=== PATIENT | female | born 1955 | race Caucasian/White ===

== ENCOUNTER → 2017-05-09 | Outpatient (CLI) | payer BC ==
[2017-05-09 13:39] LABS: BASO % 0.4 %; BASO ABS # 0.02 K/uL (0-0.2); COMPLETE YES; EOS % 1.6 %; HEMATOCRIT 37.3 % (37-47); LYMPH % 33.2 %; LYMPH ABS # 1.71 K/uL (1.2-3.4); MEAN CELL VOLUME 93.3 fL (80-100); MEAN CORPUSCULAR HEMOGLOBIN 31.5 pg (25-34); MEAN CORPUSCULAR HGB CONC 33.8 g/dl (32-36); MEAN PLATELET VOLUME 10.8 fL (7.4-10.4); MONO % 8.7 %; NEUT % 56.1 %; PLATELET COUNT 309 K/uL (130-400); WHITE BLOOD COUNT 5.15 K/uL (4.8-10.8)
[2017-05-09 13:58] LABS: BLOOD UREA NITROGEN 15 mg/dl (7-18); CALCIUM 9.2 mg/dl (8.5-10.1); CARBON DIOXIDE 28 mmol/L (21-32); CHLORIDE 107 mmol/L (98-107); CHOLESTEROL 231 mg/dl (0-200); CREATININE 0.85 mg/dl (0.60-1.20); GLUCOSE 100 mg/dl (70-99); POTASSIUM 3.7 mmol/L (3.5-5.1); SODIUM 141 mmol/L (136-145)
[2017-05-09 14:02] LABS: CHOLESTEROL/HDL RATIO 5.3; HDL CHOLESTEROL 44 mg/dl; LDL CHOLESTEROL CALCULATED 168 mg/dl; TRIGLYCERIDES 94 mg/dl (0-150); VERY LOW DENSITY LIPOPROT CALC 19 mg/dl
== END | disposition home or self-care (01) ==
LOC: C.LABMFLN 08:32
PROVIDERS: ATTEND Family Medicine
DX: E78.00 Pure hypercholesterolemia, unspecified (principal); K21.9 Gastro-esophageal reflux disease without esophagitis; D64.9 Anemia, unspecified

== ENCOUNTER → 2017-06-20 | Outpatient (CLI) | payer BC ==
--- NOTE | 2017-06-20 14:34 | MAMMOGRAPHY REPORT ---
BILATERAL DIGITAL SCREENING MAMMOGRAM TOMOSYNTHESIS WITH CAD: 06/20/2017 CLINICAL HISTORY: Routine screening. Patient has no complaints. TECHNIQUE: Breast tomosynthesis in addition to standard 2D mammography was performed. Current study was also evaluated with a Computer Aided Detection (CAD) system. COMPARISON: Comparison is made to exam dated: 05/14/2016 mammogram - [facility]. BREAST COMPOSITION: There are scattered areas of fibroglandular density in both breasts. FINDINGS: There is an oval 7 mm mass within the left upper outer quadrant, for which ultrasound and possible additional spot compression views are recommended for further evaluation. This may represen t a cyst. Additionally, there is a possible round partially circumscribed and partially obscured 7 m m mass within the right upper outer quadrant middle depth, best seen on the tomosynthesis images, for which ultrasound and possible additional spot compression views are recommended for further evaluati on. The remainder of both breasts are stable compared to prior exams, without suspicious masses, calcific ations, or areas of architectural distortion noted. IMPRESSION: ACR BI-RADS CATEGORY 0: INCOMPLETE EVALUATION: NEED ADDITIONAL IMAGING EVALUATION Bilateral breast masses, for which additional imaging evaluation is recommended. The patient will be called to schedule an appointment. Approximately 10% of breast cancers are not detected with mammography. A negative mammographic report should not delay biopsy if a clinically suggestive mass is present. Neetu Walton M.D. ah/:06/20/2017 12:49:39 Research Program Internship: Juliette HORNE(R)(M), [facility] letter sent: Addl Imaging 0 BI-RADS Code: ACR BI-RADS Category 0: Incomplete Evaluation: Need Additional Imaging Evaluation
== END | disposition home or self-care (01) ==
LOC: C.MAMM 08:58
PROVIDERS: ATTEND Family Medicine
DX: Z12.31 Encounter for screening mammogram for malignant neoplasm of breast (principal); N63.10 Unspecified lump in the right breast, unspecified quadrant; N63.20 Unspecified lump in the left breast, unspecified quadrant

== ENCOUNTER → 2017-06-25 | Outpatient (CLI) | payer BC ==
--- NOTE | 2017-06-25 15:15 | MAMMOGRAPHY REPORT ---
ULTRASOUND OF BOTH BREASTS: 06/25/2017 CLINICAL HISTORY: 62-year-old woman called back from screening mammography for 7 mm asymmetries in ea ch breast. COMPARISON: Comparison is made to exams dated: 06/20/2017 mammogram and 05/14/2016 mammogram - [facility]. FINDINGS: Targeted ultrasound was performed in the upper outer quadrant of each breast. In the 1:00 left breast, 2 cm from the nipple, there is an oval parallel circumscribed anechoic cyst measuring 4 .8 x 5.0 x 2.5 mm. There is an adjacent round circumscribed nodular hypoechoic mass that is not defi nitely contiguous with the cyst, measuring 2.6 x 2.4 mm. This could represent a complicated cyst or benign solid mass such as a fibroadenoma. Given that it does not meet the criteria for a simple cyst , a short interval follow-up is recommended in 6 months. In the 8:00 periareolar right breast, there is a lobulated hypoechoic cystic appearing mass measuring 5.6 x 6.3 x 2.9 mm. This likely corresponds to the mammographic focal asymmetry and most likely rep resents a complicated cyst. However given that it does not meet the criteria for a simple cyst, a sh ort interval follow-up is recommended in 6 months. IMPRESSION: ACR-BI-RADS CATEGORY 3: PROBABLY BENIGN - FOLLOW-UP RECOMMENDED 1. There is a benign anechoic simple cyst in the 1:00 left breast thought to correspond to the mammo graphic asymmetry. However, adjacent to the cyst is a small 2 mm round hypoechoic mass which could r epresent a complicated cyst or fibroadenoma. A short interval follow-up left diagnostic tomosynthesi s mammogram and repeat targeted ultrasound is recommended to ensure stability in 6 months. 2. There is a hypoechoic cystic appearing 6.3 mm mass in the 8:00 periareolar right breast, thought to correlate with the mammographic focal asymmetry. Although this could represent a complicated cyst , a short interval follow-up diagnostic tomosynthesis mammogram and repeat targeted ultrasound is rec ommended to enter stability in 6 months sparing These results and recommendations were discussed with the patient at the time of the exam. She tenta tively scheduled the follow-up appointment prior to leaving our department. Ely Puri M.D. ay/:06/25/2017 10:11:17 Taxicab Driver: Dr. Ely Puri, [facility] letter sent: Follow Up Recommended 3 BI-RADS Code: ACR-BI-RADS Category 3: Probably Benign
== END | disposition home or self-care (01) ==
LOC: C.MAMM 09:06
PROVIDERS: ATTEND Family Medicine
DX: N60.02 Solitary cyst of left breast (principal); N63.20 Unspecified lump in the left breast, unspecified quadrant; N63.10 Unspecified lump in the right breast, unspecified quadrant

== ENCOUNTER → 2017-12-24 | Outpatient (CLI) | payer BC ==
--- NOTE | 2017-12-25 15:31 | MAMMOGRAPHY REPORT ---
BILATERAL DIGITAL DIAGNOSTIC MAMMOGRAM TOMOSYNTHESIS WITH CAD AND TARGETED BILATERAL ULTRASOUND: 12/24 CLINICAL HISTORY: 62-year-old woman presents for follow-up in both breasts for masses identified in e ach upper outer quadrant, thought to correspond with complicated cysts on ultrasound. TECHNIQUE: Bilateral breast tomosynthesis in addition to standard 2D mammography was performed. Curre nt study was also evaluated with a Computer Aided Detection (CAD) system. COMPARISON: Comparison is made to exams dated: 06/25/2017 ultrasound, 06/20/2017 mammogram, and 05/14 mammogram - [facility]. BREAST COMPOSITION: There are scattered areas of fibroglandular density in both breasts. FINDINGS: There is a persistent lobulated and circumscribed, 6.1 x 4.1 x 4.9 mm mass in the upper out er middle one third of the left breast, that has not significantly changed in size or appearance comp aring to the prior mammograms. There are stable intramammary lymph nodes in the left upper outer rita drant posteriorly. No new suspicious masses, asymmetries, calcifications or areas of architectural d istortion are identified in the left breast. In the right upper outer middle one third of the breast, there is a low density partially circumscrib ed and obscured 5 mm mass that also appears similar to the prior tomosynthesis images. No significan t increase in size, associated micro calcification or architectural distortion. No other new suspici ous masses, calcifications, areas of architectural distortion or asymmetries are seen in the right br east. Repeat targeted ultrasound was performed in the left upper outer quadrant and right upper outer quadr ant. In the left 1:00 breast, 2 cm from the nipple, there are 2 adjacent nearly anechoic cysts. The larger component measures 5 mm and the smaller measures 2 mm. The smaller component now appears mor e anechoic and clearly cystic when compared to the prior ultrasound, confirming benignity. This jesus esponds with the mammographic mass and is benign. No further close follow-up is needed at this time. In the right 9:00 periareolar breast (previously labeled 8:00 periareolar right breast), there is a h ypoechoic to anechoic parallel oriented gently lobulated mass that measures approximately 4.6 x 2.6 x 5.7 mm. This does not fit the criteria for a simple cyst and could represent a complicated cyst or benign solid mass such as a fibroadenoma. When comparing to the prior ultrasound it may be slightly decreased in size, at which time it measured 6.3 x 2.9 x 5.6 mm, although this could simply be due to technique. Therefore, another six-month follow-up targeted right breast ultrasound is recommended. There is a newly visualized incidentally identified anechoic benign simple cyst in the 9:00 right br east, 3 cm from the nipple, measuring 3.2 x 2.3 x 2.9 mm. IMPRESSION: ACR-BI-RADS CATEGORY 3: PROBABLY BENIGN, TARGETED ULTRASOUND ACR-BI-RADS CATEGORY 3: PRO BABLY BENIGN 1. 2 adjacent benign cysts are identified in the 1:00 left breast, thought to correspond to the stab le circumscribed mammographic mass. The smaller component/cyst is now clearly more anechoic and cyst ic comparing to the prior ultrasound, confirming benignity. No further close follow-up is needed in the left breast at this time. 2. There is a stable low density partially circumscribed and obscured 5 mm mass in the right upper o uter quadrant, thought to correspond to a benign-appearing cyst cluster versus benign solid mass such as a fibroadenoma in the 9:00 periareolar right breast. This appears stable to slightly decreased i n size on ultrasound but is stable mammographically and another six-month follow-up right diagnostic tomosynthesis mammogram and repeat targeted ultrasound is recommended to ensure longer stability. 3. No other new suspicious findings identified in either breast. At the time of next six-month foll ow-up in the right breast, annual left screening mammography will also be due. These results and recommendations were discussed with the patient at the time of the exam. Approximately 10% of breast cancers are not detected with mammography. A negative mammographic report should not delay biopsy if a clinically suggestive mass is present. Ely Puri M.D. ay/:12/24/2017 14:37:26 Capping Machine Operator: Desiree HORNE([place])(M), [facility] letter sent: Follow Up Recommended 3 BI-RADS Code: ACR-BI-RADS Category 3: Probably Benign Ultrasound BI-RADS: ACR-BI-RADS Category 3: Pr obably Benign
== END | disposition home or self-care (01) ==
LOC: C.MAMM 08:54
PROVIDERS: ATTEND Family Medicine
DX: N63.21 Unspecified lump in the left breast, upper outer quadrant (principal); N63.11 Unspecified lump in the right breast, upper outer quadrant; N60.02 Solitary cyst of left breast